=== PATIENT | male | born 2000 | race African-American/Black ===

== ENCOUNTER 2020-07-05 19:09 | Emergency (ER) | payer OTHER, BC, SELFPAY ==
--- NOTE | ~2020-07-05 | CT_ITS ---
EXAMINATION: CT brain wo con, CT cervical spine wo con EXAM DATE: 07/05/2020 19:54 INDICATION: Head injury. TECHNIQUE: Spiral CT of the head was performed without contrast. Axial, coronal and sagittal images were reviewed. Spiral CT of the cervical spine was performed without contrast. Axial images were rev iewed. Coronal and sagittal reformatted images were also reviewed. The dose-length product (DLP) fo r this examination was 605.33 (accession [id number]), 468.79 (accession [id number]) mGy-cm. The exposure was tailored according to patient size, and iterative reconstruction (ASIR) was used as additional dose reduction technique. There is no prior study for comparison. FINDINGS: HEAD CT: There is no acute intraparenchymal hemorrhage. No evidence of intraparenchymal brain mass l esion. No evidence of acute infarction. There is no mass effect or midline shift. There is no obstru ctive hydrocephalus suspected. There are no extra-axial collections. There are no acute calvarial f ractures. The orbits are unremarkable. Soft tissue is unremarkable. The visualized sinuses and mas toid air cells are well aerated. CERVICAL CT: There is severe reversal of the normal cervical lordosis which may be positional or spas m. No jumped facet joint. There is no evidence of acute cervical fracture. The odontoid process is i ntact. Pre-dens space is normal. Prevertebral soft tissue is normal. There are no soft tissue abno rmalities identified. There is no disc space widening or traumatic vertebral body subluxation suspec [place]. Vertebral body and disc heights are well-maintained. A detailed level by level evaluation of spondylosis can be added as addendum if requested. IMPRESSION: 1. No acute intracranial findings or cervical fracture. 2. Severe reversal of normal cervical lordosis, could indicate muscle spasm. Reviewed, dictated and finalized at location A. [employer] IMPRESSION: 1. No acute intracranial findings or cervical fracture. 2. Severe reversal of normal cervical lordosis, could indicate muscle spasm.
[2020-07-05 19:12] VITALS: BP 133/81; PULSE 52; RESP 18; TEMP 36.3; O2SAT 99
--- NOTE | 2020-07-05 20:32 | ED.GENADULT ---
HPI - General Adult General Chief complaint: Head Injury <KIKI Yeager Last Filed: 07/05/20 20:41> Stated complaint: head injury <KIKI Yeager Last Filed: 07/05/20 20:41> Time Seen by Provider: 07/05/20 19:26 <Yuni Tsang PA-C - Last Filed: 07/05/20 20:41> Source: patient <KIKI Yeager Last Filed: 07/05/20 20:41> Mode of arrival: ambulatory <KIKI Yeager Last Filed: 07/05/20 20:41> Limitations: no limitations <KIKI Yeager Last Filed: 07/05/20 20:41> History of Present Illness HPI narrative: Patient presents with chief complaint of headache and fatigue that began after 2 boxes fell from approximately 5 feet above striking him in the head while at work. Patient denies loss of consciousness, nausea, vomiting. Patient states that his vision was slightly blurry for a few minutes but has now normalized. Patient denies any changes in behavior or mental status or hearing. Patient denies any bleeding from any of his orifices. Patient reports some neck pain. <KIKI Yeager Last Filed: 07/05/20 20:41> Related Data Allergies/adverse reactions: Allergies Allergy/AdvReac Type Severity Reaction Status Date / Time No Known Allergies Allergy Verified 07/05/20 19:20 <Yuni Tsang PA-C - Last Filed: 07/05/20 20:41> Review of Systems Review of Systems: Narrative: CONSTITUTIONAL: Denies fever, chills, or sweats. EYES: Denies visual changes, redness, or discharge. ENT: Denies rhinorrhea, congestion, sore throat, or otalgia. CARDIOVASCULAR: Denies chest pain, palpitations, or edema. RESPIRATORY: Denies cough or dyspnea. GASTROINTESTINAL: Denies abdominal pain, nausea, vomiting, or diarrhea. GENITOURINARY: Denies dysuria or hematuria. SKIN: Denies rash or itching. MUSCULOSKELETAL: Denies back pain, joint pain, or myalgia. NEUROLOGIC: Reports headache, Denies numbness, dizziness, or weakness. PSYCHIATRIC: Denies anxiety or depression. <Yuni Tsang PA-C - Last Filed: 07/05/20 20:41> PMFSH Social History Social History: Social History Gender identity (if verbalized by the patient): Male Sexual Orientation (if Verbalized by the Patient): Straight or Heterosexual <Yuni Tsang PA-C - Last Filed: 07/05/20 20:41> Exam Narrative: Exam Narrative: GENERAL: Well-appearing, well-nourished, and in no acute distress. HEAD: Normocephalic, atraumatic. EYES: PERRLA and EOMI. ENT: Nares clear, no rhinorrhea or epistaxis. Mucous membranes moist. Oropharynx without tonsillar hypertrophy exudate or other lesions. Bilateral TMs pearly rodriguez nonbulging. No hemotympanum NECK: Supple. No adenopathy or masses. CHEST: Clear to auscultation. No respiratory distress. No wheezes rales or rhonchi HEART: Regular rate and rhythm. No murmur heard. Normal peripheral pulses. EXTREMITIES: Normal range of motion. No edema. SKIN: Warm, dry, no rash. NEURO: No focal deficits. Alert and oriented x3. Vision and hearing intact. PSYCH: Normal mood and affect. <Yuni Tsang PA-C - Last Filed: 07/05/20 20:41> Course Vital Signs Vital signs: Vital Signs Temperature 97.4 F L 07/05/20 19:12 Pulse Rate 52 L 07/05/20 19:12 Respiratory Rate 18 07/05/20 19:12 Blood Pressure 133/81 07/05/20 19:12 Pulse Oximetry 99 07/05/20 19:12 Temperature 97.4 F L 07/05/20 19:12 Pulse Rate 89 07/05/20 20:49 Respiratory Rate 20 07/05/20 20:49 Blood Pressure 126/89 07/05/20 20:49 Pulse Oximetry 100 07/05/20 20:49 <Yuni Tsang PA-C - Last Filed: 07/05/20 20:41> Vital Signs Temperature 97.4 F L 07/05/20 19:12 Pulse Rate 52 L 07/05/20 19:12 Respiratory Rate 18 07/05/20 19:12 Blood Pressure 133/81 07/05/20 19:12 Pulse Oximetry 99 07/05/20 19:12 Temperature 97.4 F L 07/05/20 19:12 Pulse Rate 89 07/05/20 20:49 Respiratory Rate 20 07/05/20 20:49 Blood Pressure 126/89 /0
[2020-07-05 20:49] VITALS: BP 126/89; PULSE 89; RESP 20; O2SAT 100
== END 2020-07-05 20:52 | disposition home or self-care (01) ==
PROVIDERS: Emergency Provider General Practice
DX: S16.1XXA Strain of muscle, fascia and tendon at neck level, initial encounter (principal); S09.90XA Unspecified injury of head, initial encounter; W20.8XXA Other cause of strike by thrown, projected or falling object, initial encounter
CPT/HCPCS: 70450; 72125; 99284; L0140

== ENCOUNTER 2020-08-23 02:19 | Emergency (ER) | payer BC, SELFPAY ==
[2020-08-23 02:24] VITALS: BP 164/98; PULSE 73; RESP 16; TEMP 37; O2SAT 98
--- NOTE | 2020-08-23 02:35 | ED.GENADULT ---
HPI - General Adult General Chief complaint: Urogenital-Male Stated complaint: burning with urination Time Seen by Provider: 08/23/20 02:24 History of Present Illness HPI narrative: Patient is a 20-year-old gentleman who presents the emergency department with chief complaint of dysuria. The patient reports that he started having burning with urination yesterday and is noticed has had some clear discharge except whenever he initially urinates and then there is a whitish type discharge. Patient reports he is sexually active and does not use condoms. Patient reports no prior history of STD reports she has had no fever. Patient denies any other lesions denies nausea vomiting reports has had some mild flank the right. Related Data Allergies Allergy/AdvReac Type Severity Reaction Status Date / Time No Known Allergies Allergy Verified 07/05/20 19:20 Review of Systems Review of Systems: Narrative: A 10 system review of systems was completed on the patient and is negative except for what is stated in the HPI. Nursing and ancillary documentation was reviewed. [facility] Social History Social History Gender identity (if verbalized by the patient): Male Comments Patient denies past medical history Social history patient denies smoking Exam Narrative: Exam Narrative: GENERAL: Well-appearing, well-nourished, and in no acute distress. HEAD: Normocephalic, atraumatic. EYES: PERRLA and EOMI. ENT: Nares clear, no rhinorrhea or epistaxis. Mucous membranes moist. NECK: Supple. CHEST: Clear to auscultation. No respiratory distress. HEART: Regular rate and rhythm. No murmur heard. Normal peripheral pulses. ABDOMEN: Soft, nontender, nondistended, normal active bowel sounds. EXTREMITIES: Normal range of motion. No edema. SKIN: Warm, dry, no rash. NEURO: No focal deficits. Alert and oriented x3. PSYCH: Normal mood and affect. Course Vital Signs Vital signs: Vital Signs Temperature 37.0 C 08/23/20 02:24 Pulse Rate 73 08/23/20 02:24 Respiratory Rate 16 08/23/20 02:24 Blood Pressure 164/98 H 08/23/20 02:24 Pulse Oximetry 98 08/23/20 02:24 Temperature 37.0 C 08/23/20 02:24 Pulse Rate 73 08/23/20 02:24 Respiratory Rate 16 08/23/20 02:24 Blood Pressure 164/98 H 08/23/20 02:24 Pulse Oximetry 98 08/23/20 02:24 Medical Decision Making Vital Signs Vital Signs: Vital Signs Temperature 37.0 C 08/23/20 02:24 Pulse Rate 73 08/23/20 02:24 Respiratory Rate 16 08/23/20 02:24 Blood Pressure 164/98 H 08/23/20 02:24 Pulse Oximetry 98 08/23/20 02:24 Temperature 37.0 C 08/23/20 02:24 Pulse Rate 73 08/23/20 02:24 Respiratory Rate 16 08/23/20 02:24 Blood Pressure 164/98 H 08/23/20 02:24 Pulse Oximetry 98 08/23/20 02:24 Lab Data Labs: Lab Results 08/23/20 08/23/20 Range/Units 02:30 02:30 Urine Color Yellow (Yellow) Urine Appearance Clear (Clear) Urine pH 6.0 (5.0-9.0) Ur Specific [place] 1.033 (1.001-1.035) Urine Protein 1+ H (Negative) mg/dL Urine Glucose (UA) Negative (Negative) mg/dL Urine Ketones 1+ H (Negative) mg/dL Ur Blood (Man) Negative (Negative) Urine Nitrate Negative (Negative) Urine Bilirubin Negative (Negative) Urine Urobilinogen 4.0 H (<2.0) mg/dL Leukocyte Esterase Rfl 2+ H (Negative) JACLYN/UL Urine RBC 11-20 H (0-2) /hpf Urine WBC >75 H /hpf Ur Squamous Epith Cells Rare (Few) /hpf Urine Bacteria Trace /hpf Urine Mucus Moderate H /lpf C.trachomatis RNA (TMA) Pending N.gonorrhoeae RNA (TMA) Pending Urine Characteristics Clear Discharge Plan Discharge Clinical Impression: Urethritis Urinary tract infection Qualifiers: Urinary tract infection type: acute cystitis Hematuria presence: without hematuria Qualified Code(s): N30.00 - Acute cystitis without hematuria Patient Disposition: Home, Se
[2020-08-23] MEDS: cefTRIAXone 250 MG VIAL 500 MG IM (02:48)
[2020-08-23] MEDS: DOXYCYCLINE HYCLATE 100 MG TABLET PO (02:48)
[2020-08-23 02:52] LABS: Add Urine Microscopic? YES; Appearance Urine Clear (Clear); Bacteria Urine Trace /hpf; Bilirubin Urine Negative (Negative); Color Urine Yellow (Yellow); Glucose Urine UA Negative (Negative); Ketones Urine 1+ mg/dL (Negative); Leukocyte Esterase Ur 2+ LEU/UL (Negative); Mucus Urine Moderate /lpf; Nitrate Urine Negative (Negative); Protein Urine 1+ mg/dL (Negative); Squamous Epithelial Cell Urine Rare /hpf (Few); WBC Urine >75 /hpf
--- NOTE | 2020-08-23 02:53 | PC.NURSE ---
Lidocaine used for Rocephin reconstitution.
[2020-08-23 03:14] LABS: Blood Urine Negative (Negative); Specific Grav Ur 1.033 (1.001-1.035)
[2020-08-23 03:25] VITALS: BP 128/88; PULSE 91; RESP 20; O2SAT 99
== END 2020-08-23 03:25 | disposition home or self-care (01) ==
PROVIDERS: Emergency Provider Emergency Medicine; PCP Internal Medicine Infectious Disease
DX: N30.00 Acute cystitis without hematuria (principal); N34.2 Other urethritis
CPT/HCPCS: 81001; 87086; 87491; 87591; 96372; 99283; A9270; J0696

== ENCOUNTER 2020-12-31 16:00 | Emergency (ER) | payer BC, SELFPAY ==
[2020-12-31 16:01] VITALS: BP 131/73; PULSE 70; RESP 20; TEMP 36.8; O2SAT 99
--- NOTE | 2020-12-31 16:41 | ED.GENADULT ---
HPI - General Adult General Chief complaint: Urogenital-Male Stated complaint: REQUESTING STD CHECK Time Seen by Provider: 12/31/20 16:06 Source: patient and RN notes reviewed Mode of arrival: ambulatory Limitations: no limitations History of Present Illness HPI narrative: Patient 20-year-old male who presents noting that his girlfriend told him that she has chlamydia patient denies any similar occurrence patient denies any symptoms presents per private vehicle in no distress has not been seen for this complaint nor is he taken anything for his symptoms Related Data Allergies Allergy/AdvReac Type Severity Reaction Status Date / Time No Known Allergies Allergy Verified 07/05/20 19:20 Review of Systems Review of Systems: All systems reviewed & are unremarkable except as noted in HPI and below PMFSH Social History Social History (Updated 12/31/20 @ 16:54 by Natanael Dumas PA-C) Smoking status: Never smoker Gender identity (if verbalized by the patient): Male Exam Narrative: Exam Narrative: GENERAL: Well-appearing, well-nourished, and in no acute distress. HEAD: Normocephalic, atraumatic. EYES: PERRLA and EOMI. ENT: Nares clear, no rhinorrhea or epistaxis. Mucous membranes moist. CHEST: Clear to auscultation. No respiratory distress. No wheezes rales or rhonchi HEART: Regular rate and rhythm. No murmur heard. Normal peripheral pulses. ABDOMEN: Soft, nontender, nondistended EXTREMITIES: Normal range of motion. No edema. SKIN: Warm, dry, no rash. NEURO: No focal deficits. Alert and oriented x3. PSYCH: Normal mood and affect. Course Course Emergency Course: Patient will be treated for chlamydia with outpatient follow-up agreeing to this treatment plan provided with reasons to return Vital Signs Vital signs: Vital Signs Temperature 98.3 F 12/31/20 16:01 Pulse Rate 70 12/31/20 16:01 Respiratory Rate 20 12/31/20 16:01 Blood Pressure 131/73 12/31/20 16:01 Pulse Oximetry 99 12/31/20 16:01 Temperature 98.3 F 12/31/20 16:01 Pulse Rate 70 12/31/20 16:01 Respiratory Rate 20 12/31/20 16:01 Blood Pressure 131/73 12/31/20 16:01 Pulse Oximetry 99 12/31/20 16:01 Medical Decision Making MDM Narrative Medical decision making narrative: Patient treated for urethritis felt appropriate for outpatient reevaluation Vital Signs Vital Signs: Vital Signs Temperature 98.3 F 12/31/20 16:01 Pulse Rate 70 12/31/20 16:01 Respiratory Rate 20 12/31/20 16:01 Blood Pressure 131/73 12/31/20 16:01 Pulse Oximetry 99 12/31/20 16:01 Temperature 98.3 F 12/31/20 16:01 Pulse Rate 70 12/31/20 16:01 Respiratory Rate 20 12/31/20 16:01 Blood Pressure 131/73 12/31/20 16:01 Pulse Oximetry 99 12/31/20 16:01 Discharge Plan Discharge Clinical Impression: Urethritis Patient Disposition: Home, Self-Care Condition: Stable Instructions: Antibiotic Form, Chlamydia (ED) Additional Instructions: Follow up with primary care in the next 2-3 days for re-evaluation and culture result. Antibiotics as prescribed. Increase fluid intake. Tylenol and Motrin for pain and or fever if needed. Follow up with your doctor for further care. Call your doctor or return to the emergency department if needed for worsening symptoms or problems, especially if you have persistent high fever, vomiting, inability to urinate, weakness, blood in your urine, chnage in mental status, or other serious concerns. Prescriptions: New doxycycline hyclate 100 mg capsule 100 mg PO BID 10 Days Qty: 20 RF: 0 No Action naproxen 500 mg tablet 500 mg PO BID PRN (Reason: pain) Qty: 20 RF: 0 cyclobenzaprine 10 mg tablet 10 mg PO TID PRN (Reason: muscle spasm) Qty: 20 RF: 0 doxycycline hyclate 100 mg capsule 100 mg PO DAILY Qty: 14 RF: 0 Follow-up/Referrals: Robert,Sadie Payan. [Primary Care Provider] -
[2020-12-31] MEDS: cefTRIAXone 1 GM VIAL 0.5 GM IM (17:00)
[2020-12-31] MEDS: LIDOCAINE HCL 1% LOCAL INJ 20 ML VIAL 2.1 ML XX (17:00)
[2020-12-31 17:15] LABS: Add Urine Microscopic? NO; Appearance Urine Clear (Clear); Bilirubin Urine Negative (Negative); Blood Urine Negative (Negative); Color Urine Yellow (Yellow); Glucose Urine UA Negative (Negative); Ketones Urine Negative (Negative); Leukocyte Esterase Ur Negative LEU/UL (Negative); Nitrate Urine Negative (Negative); Protein Urine Negative (Negative); Urobilinogen Urine Negative mg/dL (<2.0)
== END 2020-12-31 17:22 | disposition home or self-care (01) ==
PROVIDERS: Emergency Medicine Emergency Medical Services; Emergency Provider Emergency Medicine; PCP Internal Medicine Infectious Disease
DX: N34.2 Other urethritis (principal)
CPT/HCPCS: 81003; 87491; 87591; 96372; 99283; J0696

== ENCOUNTER 2021-03-15 18:56 | Emergency (ER) | payer BC, SELFPAY ==
[2021-03-15 19:23] VITALS: BP 139/93; PULSE 84; RESP 17; TEMP 37.7; O2SAT 99
[2021-03-15 21:59] VITALS: BP 134/88; PULSE 88; RESP 18; O2SAT 100
--- NOTE | 2021-03-15 22:13 | ED.URI ---
HPI - URI/Sore Throat General Chief Complaint: Upper Respiratory Infection Stated Complaint: st, cough, bodyaches Time Seen by Provider: 03/15/21 20:35 Source: patient Mode of arrival: ambulatory Limitations: no limitations History of Present Illness HPI Narrative: 20-year-old with no major medical problems here with complaints of cough sore throat body aches and fever-like symptoms since last few days. He states he does not feel that bad. But his whole family has the same symptoms worried about Covid. He is not vaccinated MD elicited complaint: fever, cough, sore throat, rhinorrhea and nasal congestion Onset (ago): day(s) (2) Consistency: constant Severity: mild Description of mucous: clear Exacerbating factors: nothing Relieving factors: nothing Associated symptoms: rhinorrhea and nasal congestion Related Data Allergies Allergy/AdvReac Type Severity Reaction Status Date / Time No Known Allergies Allergy Verified 03/15/21 21:25 Review of Systems Review of Systems: All systems reviewed & are unremarkable except as noted in HPI and below Constitutional: Constitutional: Reports no additional constitutional complaints Eyes: Eyes: Reports no additional eye complaints ENT: Reports as per HPI Cardiovascular: Cardiovascular: Reports no additional cardiovascular complaints Respiratory: Respiratory: Reports no additional respiratory complaints Gastrointestinal: Gastrointestinal: Reports no additional gastrointestinal complaints Musculoskeletal: Musculoskeletal: Reports no additional musculoskeletal complaints Integumentary/Breasts: Skin/Breast: Reports system reviewed and no additional complaints, except as docu Neurologic: Reports system reviewed and no additional complaints, except as documented [facility] Social History Social History Smoking status: Never smoker Gender identity (if verbalized by the patient): Male Sexual Orientation (if Verbalized by the Patient): Straight or Heterosexual Exam Narrative: GENERAL: Well-appearing, well-nourished, and in no acute distress. HEAD: Normocephalic, atraumatic. EYES: PERRLA and EOMI. ENT: Mucous membranes moist. Mild erythematous tonsils NECK: Supple. CHEST: Clear to auscultation. No respiratory distress. HEART: Regular rate and rhythm. No murmur heard. Normal peripheral pulses. EXTREMITIES: Normal range of motion. No edema. SKIN: Warm, dry, no rash. NEURO: No focal deficits. Alert and oriented x3. PSYCH: Normal mood and affect. Course Course Emergency Course: Inform patient that Covid screen is a sent out and will be able to get the results in 2 days we will notify him if it is positive. Vital Signs Vital signs: Vital Signs Temperature 37.7 C H 03/15/21 19:23 Pulse Rate 84 03/15/21 19:23 Respiratory Rate 17 03/15/21 19:23 Blood Pressure 139/93 H 03/15/21 19:23 Pulse Oximetry 99 03/15/21 19:23 Temperature 37.7 C H 03/15/21 19:23 Pulse Rate 88 03/15/21 21:59 Respiratory Rate 18 03/15/21 21:59 Blood Pressure 134/88 03/15/21 21:59 Pulse Oximetry 100 03/15/21 21:59 MDM - URI/Sore Throat Lab Data Labs: Lab Results 03/15/21 Range/Units 21:25 SARS-CoV-2 IgG/IgM Ag?Rapid Pending Strep Screen Presumptive Negative *(Reference Range: Negative)* Discharge Plan Discharge Clinical Impression: Viral infection Patient Disposition: Home, Self-Care Condition: Stable Instructions: Antibiotic Form, Viral Syndrome (ED) Additional Instructions: Drink plenty of fluids take Tylenol ibuprofen for body aches and fever. Wait for Covid results. Prescriptions: No Action naproxen 500 mg tablet 500 mg PO BID PRN (Reason: pain) Qty: 20 RF: 0 cyclobenzaprine 10 mg tablet 10 mg PO TID PRN (Reason: muscle spasm) Qty: 20 RF: 0 doxycycline hyclate 100 mg capsule 100 mg PO DAILY Qty: 14
[2021-03-16 19:52] LABS: SARS-CoV-2 RNA PCR Negative
== END 2021-03-15 22:48 | disposition home or self-care (01) ==
PROVIDERS: Emergency Provider Family Medicine; PCP Internal Medicine Infectious Disease
DX: B34.9 Viral infection, unspecified (principal); Z20.822 Contact with and (suspected) exposure to COVID-19
CPT/HCPCS: 36415; 87081; 87426; 87880; 99283; C9803; U0003; U0005